=== PATIENT | male | born 1965 | race Two or more races ===

== ENCOUNTER 2022-03-17 11:03 | Emergency (ER) | payer BC ==
[~2022-03-17] VITALS: Ht 170.2 cm; Wt 85.3 kg
[2022-03-17] MEDS ORDERED: IVERMECTIN3 MG PO (11:45)
[2022-03-17] MEDS ORDERED: TADALAFIL20 MG PO (11:45)
[2022-03-17] MEDS ORDERED: AMOX-CLAV 875-1 EACH PO (12:45)
== END 2022-03-17 12:59 | disposition home or self-care (01) ==
LOC: ER 11:03
DX: L03.011 Cellulitis of right finger (principal); B96.89 Other specified bacterial agents as the cause of diseases classified elsewhere